=== PATIENT | male | born 1975 | race Caucasian/White ===

== ENCOUNTER → 2016-07-27 | Day surgery (SDC) | payer MEDICARE ==
--- NOTE | 2016-07-26 08:53 | MH ---
cc: GÉNESIS FIGUEROA DATE OF ADMISSION 07/27/2016 CHIEF COMPLAINT Hoarseness INDICATIONS This is a 40-year-old male smoker with a history of hoarseness who presented with inflammation of the larynx, concern for laryngeal cancer. He was treated with a very short course of steroid medical therapy with no improvement. Fiberoptic exam suggests a laryngeal lesion more centered to the right side at the supraglottic area. Exam is somewhat limited by gagging. He is to undergo microlaryngoscopy and biopsy for presumed laryngeal lesion and laryngeal cancer. PAST MEDICAL HISTORY No known drug allergies. CURRENT MEDICATIONS 1. Baclofen 2. Bupropion 3. Hydrochloride 4. Hydrocodone 5. Acetaminophen 6. Lisinopril 7. Metronidazole 8. Omeprazole 9. Paroxetine 10. Zolpidem PHYSICAL EXAM This is a well-developed, well-nourished male in no apparent distress. HEAD, EYES, EARS, NOSE, AND THROAT: Normocephalic, atraumatic. Extraocular motions intact. External ear canals clear. Lips, oral mucosa and oropharynx show no lesion. NECK: There is no neck mass. CHEST: The chest is clear to auscultation. HEART: Regular rate. ABDOMEN: Soft. EXTREMITIES: No lesions. NEUROLOGIC: Exam nonfocal. ASSESSMENT This is a 40-year-old male with hoarseness, suspected laryngeal lesion. He is to undergo microlaryngoscopy and biopsy. The risks and benefits were discussed with the patient. The risks include, but are not limited to those of anesthesia, bleeding, unfavorable scarring, hematoma abscess, infection, hoarseness, airway obstruction, pharyngeal edema. The patient states he understands and accepts the risks of the procedure. MD ERASMO Das/ELIANA /7:47 AM /8:49 AM
[~2016-07-27] VITALS: Ht 167.6 cm; Wt 67.0 kg
[~2016-07-27] MED LIST: ACETAMINOPHEN/HYDROcodone 325 MG/5 MG TAB PO PRN; DO NOT ADM ANY ANTICOAGULANT DRUGS XX PRN; INSULIN HUMAN REGULAR 1,000 UNITS/10 ML VIAL SQ PRN; LACTATED RINGER'S 1000 ML IV SCH; METOPROLOL TARTRATE 25 MG TAB PO PRN; MORPHINE SULFATE 4 MG/ML INJ IV PRN; ONDANSETRON HCL 4 MG/2 ML VIAL IV PUSH ONE; ONDANSETRON HCL 4 MG/2 ML VIAL IV PUSH PRN; PROPOFOL 200 MG/20 ML AMP IV ONE; SODIUM CHLORID 0.9% 500 ML IV SCH; fentaNYL CITRATE 250 MCG/5 ML AMP ONE
[2016-07-27 08:24] VITALS: BP 152/95; PULSE 90; RESP 16; TEMP 98.3; O2SAT 96
[2016-07-27 08:42] LABS: AUTOMATED NEUTROPHIL # 3.5 TH/MM3 (1.8-7.7); BASOPHIL % 0.7 % (0.0-2.0); EOSINOPHIL # 0.4 TH/MM3 (0-0.4); EOSINOPHIL % 6.1 % (0.0-4.0); HEMATOCRIT 45.9 % (39.0-51.0); HEMO FLAGS DIFF FINAL; LYMPH % 20.8 % (9.0-44.0); LYMPHOCYTE # 1.2 TH/MM3 (1.0-4.8); MEAN CELL VOLUME 91.1 FL (80.0-100.0); MEAN CORPUSCULAR HEMOGLOBIN 31.2 PG (27.0-34.0); MEAN CORPUSCULAR HGB CONC 34.2 % (32.0-36.0); MONO % 13.1 % (0.0-8.0); NEUT % 59.3 % (16.0-70.0); PLATELET COUNT 152 TH/MM3 (150-450); RED BLOOD COUNT 5.05 MIL/MM3 (4.50-5.90); RED CELL DISTRIBUTION WIDTH 13.9 % (11.6-17.2); WHITE BLOOD COUNT 5.9 TH/MM3 (4.0-11.0)
--- NOTE | 2016-07-27 09:54 | MP ---
cc: GÉNESIS FIGUEROA DATE OF SURGERY 07/27/2016 INDICATIONS A 40-year-old male with hoarseness, smoker with concern of laryngeal lesion, needs to undergo microlaryngoscopy, and biopsy for possible laryngeal cancer. PREOPERATIVE DIAGNOSIS Hoarseness, laryngeal lesion. POSTOPERATIVE DIAGNOSIS Hoarseness, laryngeal lesion. PROCEDURE Microlaryngoscopy biopsy. SUMMARY The patient brought to the operating room and placed in the supine position, successfully placed under general anesthesia and prepared in the usual fashion for this procedure. The soft tissues of the head and neck were palpated. There was no palpable lesion. The patient was examined with the laryngoscope. The base of tongue appeared clear. The lateral areas and post areas appeared clear. 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 The false cords both appeared clear. Epiglottis and vallecula were clear. A right vocal cord biopsy was completed. The patient tolerated the procedure well. He was suctioned. He was awakened, extubated and taken to recovery in stable condition. MD ERASMO Das/ELIANA /9:44 AM /9:47 AM RALPH
[2016-07-27 12:03] VITALS: BP 134/91; PULSE 96; RESP 18; TEMP 96.8; O2SAT 96
== END | disposition home or self-care (01) ==
LOC: HSDC 07:43
PROVIDERS: ATTEND Specialist
DX: R49.0 Dysphonia (principal); F17.210 Nicotine dependence, cigarettes, uncomplicated; J38.7 Other diseases of larynx; J38.3 Other diseases of vocal cords
CPT/HCPCS: 00320; 31536; 85025; 88305; J2405; J3010; J7120

== ENCOUNTER 2017-06-02 23:42 | Emergency (ER) | payer MEDICARE ==
[~2017-06-02] VITALS: Ht 167.6 cm; Wt 68.0 kg
[2017-06-02 23:44] VITALS: BP 165/109; PULSE 106; RESP 18; TEMP 97.4; O2SAT 100
[2017-06-03] MEDS ORDERED: ACETAMINOPHEN/HYDROcodone 325 MG/5 MG TAB PO ONE (00:30)
[2017-06-03] MEDS ORDERED: METHOCARBAMOL 500 MG TAB PO ONE (00:30)
[2017-06-03] MEDS ORDERED: NAPROXEN 500 MG TAB PO ONE (00:30)
--- NOTE | 2017-06-03 00:34 | PD ---
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 He states that he had ran into the corner of a counter with his left flank. This had occurred 1 week ago. Since then he has had aggressive worsening left lower back pain. He states that he had lumbar discectomy, and cage put in years ago. He states that Dr. Hays was his surgeon and he recovered well. He states that he is not under pain management. He states that he does normal activities. He states that he does not take any medications currently. He states since then he's had increasing pain and decreased ability to ambulate and move freely. He denies any acute bowel changes. He does state that he feels that he cannot completely empty his bladder. He denies any over flow incontinence. He denies any focal numbness, tingling or weakness. He states the pain is moderate but can be more severe with certain movements. Some relief of the remaining still. He has not contacted her primary care doctor or Dr. Hays regarding his injury. FORMERLY [facility], [facility] Past Medical History Narrative Medical Lumbar disc disease Blood Disorders: No Cancer: No Cardiovascular Problems: No Diabetes: No Endocrine: No GERD: Yes Genitourinary: No Hepatitis: No Hiatal Hernia: No Hypertension: Yes (NO MEDS) Immune Disorder: No Musculoskeletal: Yes (BACK SURG) Neurologic: No Psychiatric: No Reproductive: No Respiratory: No Thyroid Disease: No Tetanus Vaccination: < 5 Years Influenza Vaccination: No Past Surgical History Narrative Surgical Lumbar discectomy with cage AICD: No Body Medical Devices: HARDWARE Joint Replacement: No Pacemaker: No Other Surgery: Yes (LEFT KNEE KEKE BACK KEKE RIGHT FOOT) Social History Alcohol Use: Yes (OCC) Tobacco Use: Yes (1 PPD) Substance Use: No Allergies-Medications (Allergen,Severity, Reaction): Coded Allergies: No Known Allergies (Verified , 07/27/16) Reported Meds & Prescriptions Reported Meds & Active Scripts Active Robaxin (Methocarbamol) 500 Mg Tab 1,000 Mg PO TID [address] (Diclofenac Sodium) 75 Mg Tabdr 75 Mg PO BID [place] (Hydrocodone-Acetaminophen) 5 Mg-325 Mg Tab 1 Tab PO Q6H PRN Review of Systems Except as stated in HPI: all other systems reviewed are Neg Genitourinary: Positive: Flank Pain, No: Urgency, Frequency, Dysuria, Hematuria Musculoskeletal: Positive: Limited ROM, Cramping, Edema, Pain Skin: Positive Other (left flank bruising) Physical Exam Narrative GENERAL: Well-developed, well-nourished in no acute distress. Nontoxic appearing. HEAD: Normocephalic, atraumatic. EYES: Pupils equal round and reactive. Extraocular motions intact. No scleral icterus. No injection or drainage. ENT: TMs clear without erythema. The external auditory canals clear. Nose: clear . Posterior pharynx is pink and moist. No tonsillar edema or exudate. Uvula midline. Airway patent. NECK: Trachea midline.Supple, nontender, moves head freely. No central bony tenderness or spasm. CARDIOVASCULAR: Regular rate and rhythm without murmurs, gallops, or rubs. RESPIRATORY: Clear to auscultation. Breath sounds equal bilaterally. No wheezes , rales, or rhonchi. GASTROINTESTINAL: Abdomen soft, non-tender, nondistended. No hepato-splenomegaly , or palpable masses. No guarding. EXTREMITIES: No clubbing, cyanosis, or edema. No joint tenderness, effusion, or edema noted. BACK: Patient has left paralumbar tenderness just lateral to his incision site without deformity or crepitance. He has decreased range of motion due to pain. Positive left flank tenderness. This is the area of ecchymosis. There is a 6 x 6 cm area of ecchymosis to the left flank. Patient has decrease range of motion. Mild spasm. No saddle anesthesia. No central bony tenderness. Data Data Last Documented VS Vital Signs Date Time Temp Pulse Resp B/P (MAP) Pulse Ox O2 Delivery O2 Flow Rate FiO2 06/02/17 23:44 97.4 106 18 165/109 (127) 100 Room Air Orders Orders Spine, Lumbar - Ltd (Ap & Lat) (06/03/17 00:21) Acetamin-Hydrocod 325-5 Mg ([place] 5-325 (06/03/17 00:30) Methocarbamol (Robaxin) (06/03/17 00:30) Naproxen (Naprosyn) (06/03/17 00:30) Urinalysis - C+S If Indicated (06/03/17 00:21) Ed Discharge Order (06/03/17 01:34) Labs Laboratory Tests Test 06/03/17 00:35 Urine Color LIGHT-YELLOW Urine Turbidity CLEAR Urine pH 5.0 Urine Specific [place] 1.001 Urine Protein NEG mg/dL Urine Glucose (UA) NEG mg/dL Urine Ketones NEG mg/dL Urine Occult Blood NEG Urine Nitrite NEG Urine Bilirubin NEG Urine Urobilinogen LESS THAN 2.0 MG/DL Urine Leukocyte Esterase NEG Urine WBC 1 /hpf Urine Bacteria RARE /hpf Urine Hyaline Casts 1 /lpf Microscopic Urinalysis Comment CULT NOT INDICATED MDM Medical Decision Making Medical Screen Exam Complete: Yes Emergency Medical Condition: Yes Medical Record Reviewed: Yes Interpretation(s) Laboratory Tests Test 06/03/17 00:35 Urine Color LIGHT-YELLOW Urine Turbidity CLEAR Urine pH 5.0 Urine Specific [place] 1.001 Urine Protein NEG mg/dL Urine Glucose (UA) NEG mg/dL Urine Ketones NEG mg/dL Urine Occult Blood NEG Urine Nitrite NEG Urine Bilirubin NEG Urine Urobilinogen LESS THAN 2.0 MG/DL Urine Leukocyte Esterase NEG Urine WBC 1 /hpf Urine Bacteria RARE /hpf Urine Hyaline Casts 1 /lpf Microscopic Urinalysis Comment CULT NOT INDICATED Last 24 hours Impressions Lumbar Spine X-Ray 06/03/17 0021 Signed Impressions: Service Date/Time: Saturday, June 03, 2017 00:34 - CONCLUSION: Postoperative change the L5-S1 level. Isaac Huang MD Differential Diagnosis MDM: High Differential diagnoses: Fracture, sprain, strain, HNP, nerve or vascular injury , epidural abscess, pilonidal cyst Narrative Course Patient is given or cold 5 mg, Naprosyn 500 mg and Robaxin 1 g by mouth. X- rays of lumbar spine along with urinalysis. Diagnosis Primary Impression: left flank contusion Additional Impression: acute exacerbation of chronic back pain Patient Instructions: General Instructions, Narcotic given in the ED Departure Forms: Tests/Procedures, Work Release Special Instructions: No work 3 days. Additional Instructions: Rest. Ice for the next 3 days followed by heat . [place], Flexeril and Voltaren. Follow-up with a primary care doctor in 2-3 days. Follow-up with Dr. Hays your orthopedic surgeon in the next 2-3 days. Return to the ER for emergencies. Med/Other Pt SpecificInfo: Prescription(s) given Scripts Methocarbamol (Robaxin) 500 Mg Tab 1000 MG PO TID for Muscle Spasm for 10 Days, TAB 0 Refills Prov: Arden Yousif MD 06/03/[address] (Diclofenac Sodium DR) 75 Mg Tabdr 75 MG PO BID, #20 TAB 0 Refills Prov: Arden Yousif MD 06/03/17 Hydrocodone-Acetaminophen ([place]) 5 Mg-325 Mg Tab 1 TAB PO Q6H Y for PAIN, #12 TAB 0 Refills Prov: Arden Yousif MD 06/03/17 Disposition: 01 DISCHARGE HOME Condition: Stable Mohan Dao Jun 03, 2017 00:34
[2017-06-03 00:55] LABS: BACTERIA, URINE RARE /hpf; BILIRUBIN, URINE NEG (NEG); BLOOD, URINE NEG (NEG); GLUCOSE,URINE NEG (NEG); HYALINE CAST, URINE 1 /lpf (RARE); KETONE, URINE NEG (NEG); NITRITE,URINE NEG (NEG); URINE COLOR LIGHT-YELLOW (YELLW/STRAW); URINE LEUKOCYTE ESTERASE NEG (NEG)
--- NOTE | 2017-06-03 00:59 | RADRPT ---
EXAM DATE/TIME: 06/03/2017 00:34 [facility] COMPARISON: No previous studies available for comparison. INDICATIONS : Back pain. Last known trauma was one week ago when patient struck a corner wall. MEDICAL HISTORY : Herniated disc. SURGICAL HISTORY : Fusion, lumbar. ENCOUNTER: Initial ACUITY: 1 week PAIN SCORE: 10/10 LOCATION: Bilateral Low Back FINDINGS: Transpedicular screws are seen at the L5-S1 levels. There is a stabilization device at the right side of the L5-S1 disc level. The patient is status post right laminectomy at L5. The lumbar vertebral pam dies are normal in height. They are in normal alignment in the sagittal plane. There is a minimal lev ocurvature of the lumbar spine. The sacroiliac joints are intact. CONCLUSION: Postoperative change the L5-S1 level. Isaac Huang MD on June 03, 2017 at 0:55 Board Certified Radiologist. This report was verified electronically.
[2017-06-03] MEDS ORDERED: NORC5TAB PO (01:35)
[2017-06-03] MEDS ORDERED: DICL75TA PO (01:35)
[2017-06-03] MEDS ORDERED: ROBA500T PO (01:35)
== END 2017-06-03 01:52 | disposition home or self-care (01) ==
LOC: NEPD 23:42
DX: S30.1XXA Contusion of abdominal wall, initial encounter (principal); M54.9 Dorsalgia, unspecified; G89.29 Other chronic pain; K21.9 Gastro-esophageal reflux disease without esophagitis; I10 Essential (primary) hypertension; F17.200 Nicotine dependence, unspecified, uncomplicated; Z79.899 Other long term (current) drug therapy; W22.8XXA Striking against or struck by other objects, initial encounter
CPT/HCPCS: 72100; 81001; 99284